=== PATIENT | female | born 2000 | race Caucasian/White ===

== ENCOUNTER 2022-03-10 00:20 | Emergency (ER) | payer BC, OTHER ==
[~2022-03-10] VITALS: Ht 167.6 cm; Wt 55.3 kg
[2022-03-10] MEDS ORDERED: ZIPRASIDONE MESYLATE 20 MG VIAL IM ONE ×2 (00:22→00:30)
--- NOTE | 2022-03-10 00:22 | NUR ---
Patient BIB mother. Mother states that patient is having psychotic episode x4 days. Mother states that patient has a hx of schizophrenia. Last psychotic episode was about a year and a half ago.
[2022-03-10 00:56] LABS: HEMATOCRIT 41.4 % (31.2-41.9); MEAN CORPUSCULAR HEMOGLOBIN 29.6 uug (24.7-32.8); MEAN CORPUSCULAR VOLUME 86.2 fL (75.5-95.3); PLATELET COUNT (AUTO) 314 K/uL (179-408)
--- NOTE | 2022-03-10 00:58 | NUR ---
notified general house worker for an order of 1:1 sitter. She informs me no sitter is available
[2022-03-10 00:59] LABS: CARBON DIOXIDE 24 mmol/L (21-32); CHLORIDE 105 mmol/L (98-107); CREATININE 0.8 mg/dL (0.6-1.3); GLUCOSE 109 mg/dL (74-106); POTASSIUM 3.8 mmol/L (3.5-5.1); UREA NITROGEN, BLOOD 17 mg/dL (7-18)
[2022-03-10 01:06] LABS: ALANINE AMINOTRANSFERASE 18 U/L (14-59); ALKALINE PHOSPHATASE 85 U/L (50-136); ASPARTATE AMINOTRANSFERASE 11 U/L (15-37); BILIRUBIN,DIRECT 0.1 mg/dL (0.0-0.2); BILIRUBIN,TOTAL 0.3 mg/dL (0.2-1.0); CREATINE KINASE, TOTAL 37 U/L (26-192); TOTAL PROTEIN, SERUM 7.5 g/dL (6.4-8.2)
[2022-03-10 01:31] LABS: ETHANOL < 3 MG/DL (0-0)
[2022-03-10 01:32] LABS: ACETAMINOPHEN < 2.0 ug/mL (10-30)
--- NOTE | 2022-03-10 01:44 | NUR ---
Dr Cooley gave order to cancel saline lock
[2022-03-10 01:52] LABS: *BILIRUBIN,URIN NEGATIVE (NEGATIVE); *BLOOD, URINE 1+ (NEGATIVE); *CLARITY,URINE CLEAR (CLEAR); *COLOR,URINE YELLOW (YELLOW); *KETONES,URINE 1+ (NEGATIVE); *UROBILINOGEN,URINE 0.2 E.U./dl (NORMAL); LEUKOCYTE ESTERASE ,URINE NEGATIVE (NEGATIVE); NITRITE, URINE NEGATIVE (NEGATIVE); UGLUCOSE NEGATIVE (NEGATIVE)
[2022-03-10 02:02] LABS: *AMPHETAMINE, URINE NEGATIVE (NEGATIVE); *CANNABINOID, URINE NEGATIVE (NEGATIVE); *COCCAINE, URINE NEGATIVE (NEGATIVE); *OPIATE, URINE NEGATIVE (NEGATIVE); *PHENCYCLIDINE SCREEN,URINE NEGATIVE (NEGATIVE)
[2022-03-10 02:03] LABS: BACTERIA,URINE MODERATE /HPF (NONE SEEN); SQUAMOUS EPITHELIAL CELL,UR MODERATE /HPF (NONE SEEN); WBC,URINE 0-3 /HPF (0-3)
[2022-03-10] MEDS ORDERED: diphenhydrAMINE 50 MG/1 ML VIAL ONE (02:29)
[2022-03-10] MEDS ORDERED: diphenhydrAMINE 50 MG/1 ML VIAL IM ONE (02:30)
--- NOTE | 2022-03-10 02:50 | NUR ---
Patient's mother have been arguing with Dr Cooley. Impeeding with patient's care. Arguing against any medicine that the doctor orders. 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
--- NOTE | 2022-03-10 05:00 | NUR ---
Called [facility]. Patient will go to [facility] bed [id number]
--- NOTE | 2022-03-10 06:27 | NUR ---
Report given to [facility]
--- NOTE | 2022-03-10 06:30 | NUR ---
Called [facility] for transfer to [facility]. ETA 30-45 mins
--- NOTE | 2022-03-10 07:35 | NUR ---
Patient awake with mother on bedside. Patient transferred to [facility] via [facility] ambulance. Recent vitals; BP-117/80 KY-85 RR-20 T-98F SPO2-98% RA PA-0/10.
== END 2022-03-10 07:41 ==
LOC: ER 00:23
DX: F23 Brief psychotic disorder (principal); F25.9 Schizoaffective disorder, unspecified; Z20.822 Contact with and (suspected) exposure to COVID-19; R82.4 Acetonuria
CPT/HCPCS: 36415; 80048; 80076; 80178; 80299; 80307; 80320; 81001; 82550; 84702; 85025; 87086; 87426; 93005; 96372; 99285; J1200; J3486; 70030-TC; A4663; G0480; J2358